=== PATIENT | male | born 1950 | race Caucasian/White ===

== ENCOUNTER → 2019-07-07 | Outpatient (CLI) | payer MEDICARE, BC ==
[~2019-07-07] MED LIST: ALLO100 PO; CEPH500 PO; ESOM20 PO; HYDACE5 PO; LEVSOD100 PO; MELO7.5 PO; META800 PO; SULTRIDS PO; TRAM50 PO
== END | disposition home or self-care (01) ==
LOC: LAB SHORT 11:51 → PLD 11:51
DX: D48.5 Neoplasm of uncertain behavior of skin (principal)
CPT/HCPCS: 88305

== ENCOUNTER → 2020-02-16 | Outpatient (CLI) | payer MEDICARE, BC | END | disposition home or self-care (01) | LOC: PLD 12:02 → LAB SHORT 12:02 | DX: C44.329 Squamous cell carcinoma of skin of other parts of face (principal) | CPT/HCPCS: 88305 ==

== ENCOUNTER → 2020-03-13 | Outpatient (CLI) | payer MEDICARE, BC | LOC: LAB SHORT 12:11 → PLD 12:11 | DX: L57.0 Actinic keratosis (principal) | CPT/HCPCS: 88305 ==

== ENCOUNTER → 2021-04-30 | Outpatient (CLI) | payer MEDICARE, BC | END | disposition home or self-care (01) | LOC: LAB SHORT 08:03 | DX: L82.1 Other seborrheic keratosis (principal) | CPT/HCPCS: 88305 ==

== ENCOUNTER → 2022-09-25 | Outpatient (CLI) | payer MEDICARE, BC | END | disposition home or self-care (01) | LOC: LAB SHORT 11:15 → PLD 11:15 | DX: C44.629 Squamous cell carcinoma of skin of left upper limb, including shoulder (principal) | CPT/HCPCS: 88305 ==

== ENCOUNTER → 2023-03-04 | Outpatient (CLI) | payer MEDICARE, BC ==
[~2023-03-04] MED LIST changes: +FISH OIL 1,0001 EA10 PO; +MAGNESIUM GLYCONATE PO; +MULVITA PO; +TURMERIC538 MG PO; +VITAMIN D310 MC4 PO
== END ==
LOC: LAB SHORT 11:42 → PLD 11:42
DX: L57.0 Actinic keratosis (principal)
CPT/HCPCS: 88305

== ENCOUNTER 2023-03-25 07:04 | Day surgery (SDC) | payer MEDICARE, BC ==
[2023-03-25] VITALS (17 sets, daily range): BP systolic 109–179; BP diastolic 66–106
[~2023-03-25] VITALS: Ht 188 cm; Wt 126.0 kg
--- NOTE | 2023-03-25 10:13 | NUR ---
03/25/23 1013 Sidra Myers SPINAL NERVE BLOCK COMPLETED UPON ENTRY TO OR, BY DR. CARRANZA. PT TOLERATED WELL
--- NOTE | 2023-03-25 11:54 | NUR ---
PATIENT ARRIVED FROM PACU TODAY. POD 0 RIGHT TOTAL KNEE PATIENT IS A&OX4. VS ARE WNL AND IS ON RA. PATIENT DENIES PAIN AT THIS TIME. HE HAD A SPINAL DURING THE PROCEDURE BUT HE REPORTS "A LITTLE NUMB ON THE BOTTOMS OF MY FEET". PATIENT IS ABLE TO LIFT LEGS OFF THE BED AND MOVE ALL FINGERS AND TOES WHEN ASKED. HIS RIGHT KNEE HAS AN ZEINA WRAP THAT IS C/D/I. HE IS TOLERATING SMALL AMOUNTS OF PO INTAKE AT THIS TIME. HE IS LAYING IN BED WITH CALL LIGHT IN REACH AND AT BEDSIDE.
--- NOTE | 2023-03-25 12:00 | NUR ---
PATIENTS WAS GIVEN THE HARD PERSCRIPTIONS.
--- NOTE | 2023-03-25 17:50 | NUR ---
SHIFT SUMMARY: POD 0 RIGHT TOTAL HIP PATIENT IS A&OX4. VS ARE WNL AND IS ON RA. PAIN IS MANAGED WITH PO OXY, TYLENOL, AND IV TORADOL. HIS RIGHT HIP HAS AN AQUACEL THAT IS C/D/I. DENIES NUMBNESS OR TINGLING IN ALL EXTREMITIES. CAN MOVE ALL FINGERS AND TOES. HE IS A SBA WITH FWW AND GAIT BELT. PATIENT IS TOLERATING PO INTAKE AND IS VOIDING. PATIENT IS SITTING UP IN THE RECLINER WITH CALL LIGHT IN REACH. PATIENT WAS ABLE TO WORK WITH PHYSICAL THERAPY ONCE TODAY WELL.
[2023-03-25] MEDS ORDERED: ASPI81CH PO (18:08)
[2023-03-25] MEDS ORDERED: Percocet 5-3251 EACH PO (18:09)
[2023-03-26 03:49] VITALS: BP 167/96
[2023-03-26 04:06] LABS: BASOPHILS ABSOLUTE AUTO 0.01 K/mm3 (0.00-0.23); BASOPHILS PERCENT AUTO 0 % (0-2); EOSINOPHILS ABSOLUTE AUTO 0.01 K/mm3 (0.00-0.68); EOSINOPHILS PERCENT AUTO 0 % (0-6); Hemoglobin 13.2 g/dL (13.5-17.5); IMMATURE GRAN ABSOLUTE AUTO 0.05 K/mm3 (0.00-0.10); IMMATURE GRAN PERCENT AUTO 1 % (0-1); LYMPHOCYTES ABSOLUTE AUTO 1.37 K/mm3 (0.84-5.20); LYMPHOCYTES PERCENT AUTO 13 % (21-46); MONOCYTES ABSOLUTE AUTO 0.76 K/mm3 (0.16-1.47); MONOCYTES PERCENT AUTO 7 % (4-13); Mean Corpuscular HGB Conc 33.8 g/dL (31.5-36.5); Mean Corpuscular Volume 89 fL (80-100); Mean Platelet Volume 10.4 fL (9.1-12.4); NEUTROPHILS ABSOLUTE AUTO 8.34 K/mm3 (1.96-9.15); NEUTROPHILS PERCENT AUTO 79 % (41-73); Platelet Count 175 K/mm3 (150-400); RDW Coefficient Variation 13.2 % (11.7-14.2); RDW Standard Deviation 42.7 fL (35.1-46.3); White Blood Cell Count 10.54 K/mm3 (4.00-11.30)
[2023-03-26 04:23] LABS: Bun/Creatinine Ratio 27.5 (12.0-20.0); Calcium, Blood 8.8 mg/dL (8.5-10.1); Creatinine, Blood 0.94 mg/dL (0.60-1.20); Potassium, Blood 4.3 mmol/L (3.5-5.5)
--- NOTE | 2023-03-26 06:57 | NUR ---
SHIFT SUMMARY PT IS HERE FOR A POD#1 RIGHT TOTAL KNEE. PT IS ABLE TO AMBULATE TO THE BATHROOM AND IS STEADY ON HER FEET. PT'S PAIN HAS BEEN MEDICATED PER EMAR. VITAL SIGNS HAVE BEEN STABLE. BED IS IN LOWEST POSITION, CALL LIGHT IS WITHIN REACH.
[2023-03-26 09:01] VITALS: BP 149/88
--- NOTE | 2023-03-26 11:59 | NUR ---
DISCHARGE SUMMARY POD1 R TKA, A/OX4, VSS, TOLERATING PO, PAIN WELL MANAGED, AMBULATING WELL, VOIDING INDEPENDENTLY, DRESSING TO R KNEE C/D/I WITH NO REDNESS NOTED. IV ACCESS REMOVED PRIOR TO DISCHARGE. DISCUSSED DISCHARGE INSTRUCTIONS WITH HIM AND HIS INCLUDING HOME CARE, MEDICATIONS, AND FOLLOW UP APPOINTMENTS. NO QUESTIONS AT THIS TIME, EXTRA DRESSING PROVIDED, [facility] WITH [facility] PERSONAL POSSESSIONS.
[2023-03-27] MEDS ORDERED: LIVALO4 MG PO (09:13)
[2023-03-27] MEDS ORDERED: FISH OIL 1,0001 EA10 PO (09:13)
[2023-03-27] MEDS ORDERED: MULVITA PO (09:14)
[2023-03-27] MEDS ORDERED: PROBIOTIC1 EA13 PO (09:14)
[2023-03-27] MEDS ORDERED: CYCL10 PO (13:33)
== END 2023-03-26 11:24 | disposition home or self-care (01) ==
LOC: ORSCMMR 07:04 → ORD 08:15 → SURS 11:36 → ORSCMMR 03-26 11:24
PROVIDERS: Orthopaedic Surgery
PROC: 8E0Y0CZ Robotic Assisted Procedure of Lower Extremity, Open Approach (ICD-10-PCS; principal; 2023-03-25 08:15)
PROC: 0SRC0JA Replacement of Right Knee Joint with Synthetic Substitute, Uncemented, Open Approach (ICD-10-PCS; principal; 2023-03-25 08:15)
DX: M17.11 Unilateral primary osteoarthritis, right knee (principal); E78.5 Hyperlipidemia, unspecified; E03.9 Hypothyroidism, unspecified; K21.9 Gastro-esophageal reflux disease without esophagitis; E66.9 Obesity, unspecified; Z68.35 Body mass index [BMI] 35.0-35.9, adult; Z79.899 Other long term (current) drug therapy
CPT/HCPCS: 27447; 0055T; 36415; 73560-RT; 80048; 85025; 97110; 97116; 97162; A9270; C1713; C1776; J0171; J0690; J0735; J1100; J1170; J1885; J2250; J2371; J2405; J2704; J2795; J7120

== ENCOUNTER 2024-08-12 23:21 | Emergency (ER) | payer MEDICARE, BC ==
[~2024-08-12] VITALS: Ht 188 cm; Wt 120.2 kg
[~2024-08-12 23:21] MED LIST changes: +ASPI81CH PO; +CYCL10 PO; +LIVALO4 MG PO; +PROBIOTIC1 EA13 PO; +Percocet 5-3251 EACH PO
[2024-08-12 23:36] VITALS: BP 239/109
[2024-08-12 23:54] LABS: Source, Urine Clean Catch
[2024-08-13] LABS: Bilirubin, Urine Neg (Neg); Blood, Urine Neg (Neg); Glucose Qualitative, Urine Neg (Neg); Ketones, Urine Neg (Neg); Leukocyte Esterase, Urine Neg (Neg); Nitrite, Urine Neg (Neg); Protein, Urine 2+ (Neg); Urobilinogen, Urine NORM (Normal)
[2024-08-13 00:16] LABS: Appearance, Urine Clear (Clear); Color, Urine Yellow (P-Yellow)
[2024-08-13 00:17] LABS: Bacteria Not Seen /hpf; Red Blood Cells, Urine Not Seen /hpf (0-2); Squamous Epithelial Cells Rare /hpf (Few); White Blood Cells, Urine Not Seen /hpf (0-5)
[2024-08-13 00:43] LABS: BASOPHILS ABSOLUTE AUTO 0.07 K/mm3 (0.00-0.23); BASOPHILS PERCENT AUTO 1 % (0-2); EOSINOPHILS PERCENT AUTO 2 % (0-6); Hematocrit 44.2 % (37.0-53.0); Hemoglobin 15.2 g/dL (13.5-17.5); IMMATURE GRAN ABSOLUTE AUTO 0.02 K/mm3 (0.00-0.10); IMMATURE GRAN PERCENT AUTO 0 % (0-1); LYMPHOCYTES ABSOLUTE AUTO 1.58 K/mm3 (0.84-5.20); LYMPHOCYTES PERCENT AUTO 19 % (21-46); MONOCYTES ABSOLUTE AUTO 0.76 K/mm3 (0.16-1.47); MONOCYTES PERCENT AUTO 9 % (4-13); Mean Corpuscular HGB 30.3 pg (26.0-34.0); Mean Corpuscular HGB Conc 34.4 g/dL (31.5-36.5); Mean Corpuscular Volume 88 fL (80-100); Mean Platelet Volume 10.1 fL (9.1-12.4); NEUTROPHILS ABSOLUTE AUTO 5.55 K/mm3 (1.96-9.15); NEUTROPHILS PERCENT AUTO 68 % (41-73); Platelet Count 183 K/mm3 (150-400); RDW Coefficient Variation 13.6 % (11.7-14.2); RDW Standard Deviation 43.7 fL (35.1-46.3); Red Blood Cell Count 5.02 M/mm3 (4.30-5.90); White Blood Cell Count 8.18 K/mm3 (4.00-11.30)
[2024-08-13 01:08] LABS: Bun/Creatinine Ratio 25.9 (12.0-20.0); Calcium, Blood 9.3 mg/dL (8.5-10.1); Creatinine, Blood 0.93 mg/dL (0.60-1.20); Potassium, Blood 4.1 mmol/L (3.5-5.5)
== END 2024-08-13 01:35 | disposition home or self-care (01) ==
LOC: ER 23:21
PROVIDERS: Student in an Organized Health Care Education/Training Program
DX: N40.1 Benign prostatic hyperplasia with lower urinary tract symptoms (principal); Z59.89 Other problems related to housing and economic circumstances; Z88.5 Allergy status to narcotic agent; Z91.048 Other nonmedicinal substance allergy status; Z79.899 Other long term (current) drug therapy; Z79.891 Long term (current) use of opiate analgesic; Z79.890 Hormone replacement therapy; Z79.51 Long term (current) use of inhaled steroids; Z79.52 Long term (current) use of systemic steroids; Z79.83 Long term (current) use of bisphosphonates; Z79.84 Long term (current) use of oral hypoglycemic drugs; Z79.1 Long term (current) use of non-steroidal anti-inflammatories (NSAID)
CPT/HCPCS: 51702; 51798; 80048; 81001; 85025; 99283-25

== ENCOUNTER 2024-11-24 05:56 | Emergency (ER) | payer MEDICARE, BC ==
[~2024-11-24] VITALS: Ht 188 cm; Wt 117.9 kg
[2024-11-24 06:09] VITALS: BP 183/93
[2024-11-24] MEDS ORDERED: Naproxen 250 MG TAB PO ONE (07:05)
[2024-11-24] MEDS ORDERED: Trimethoprim/Sulfamethoxazole DS Tab PO ONE (07:05)
[2024-11-24] MEDS ORDERED: NAPR500 PO (07:09)
[2024-11-24] MEDS ORDERED: SULTRIDS PO (07:09)
[2024-11-24 07:45] LABS: BODY FLUID RBC 0.002 M/mm3 (0-0)
[2024-11-24 07:46] LABS: RBC Count, Synovial Fluid 2000 /mm3 (0-0); WBC Count, Synovial Fluid 687 /mm3 (0-180)
[2024-11-24 08:21] LABS: Appearance, Synovial Fluid Hazy (Clear); Color, Synovial Fluid Yellow (None-P Yel); Lymphs, Synovial Fluid 10 % (0-15); Monocytes/Macrophages, Synovia 2 % (0-65); Neutrophils, Synovial Fluid 88 % (0-24)
== END 2024-11-24 07:15 | disposition home or self-care (01) ==
LOC: ER 05:56
PROVIDERS: Emergency Medicine
DX: M70.22 Olecranon bursitis, left elbow (principal); E03.9 Hypothyroidism, unspecified; Z88.5 Allergy status to narcotic agent; Z91.048 Other nonmedicinal substance allergy status; Z79.890 Hormone replacement therapy; Z79.899 Other long term (current) drug therapy
CPT/HCPCS: 20605; 87070; 87075; 87077; 87147; 87186; 87205; 89051; 99283-25; A9270